=== PATIENT | male | born 1990 | race Caucasian/White ===

== ENCOUNTER 2018-02-01 11:52 | Emergency (ER) | payer OTHER ==
[2018-02-01 12:14] VITALS: BP 134/79
[2018-02-01] MEDS ORDERED: ZOFRAN IV ONE (13:46)
[2018-02-01] MEDS ORDERED: NACL 0.9% 1000 ML 1,000 ML IV ONE (13:46)
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
[2018-02-01] MEDS ORDERED: BENTYL PO ONE ×2 (13:47→14:16)
[2018-02-01 14:05] LABS: Eosinophils # (Auto) 0.1 K/mm3 (0.0-0.4); Eosinophils % (Auto) 1.5 % (0.0-4.3); Hemoglobin 17.6 gm/dl (11.8-15.2); Lymphocytes # (Auto) 1.3 K/mm3 (1.2-5.4); Mean Corpuscular HGB Conc 35 % (32-34); Mean Corpuscular Hemoglobin 31 pg (28-32); Mean Corpuscular Volume 91 fl (84-94); Monocytes # (Auto) 0.3 K/mm3 (0.0-0.8); Monocytes % (Auto) 7.1 % (0.0-7.3); Platelet Count 210 K/mm3 (140-440); Red Blood Count 5.61 M/mm3 (3.65-5.03); Red Cell Distribution Width 12.9 % (13.2-15.2)
[2018-02-01] MEDS ORDERED: BENTYL ONE (14:18)
[2018-02-01 14:20] LABS: Alanine Aminotransferase 23 units/L (7-56); Albumin 4.8 g/dL (3.9-5); BUN/Creatinine Ratio 10; Blood Urea Nitrogen 9 mg/dL (9-20); Calcium 10.1 mg/dL (8.4-10.2); Hemolysis Index 12; Lipase 18 units/L (13-60)
== END 2018-02-01 16:00 | disposition home or self-care (01) ==
LOC: ED 11:52
DX: K52.9 Noninfective gastroenteritis and colitis, unspecified (principal); F17.200 Nicotine dependence, unspecified, uncomplicated; F12.10 Cannabis abuse, uncomplicated
CPT/HCPCS: 36415; 80053; 83690; 85025; 96361; 96374; 99283; J2405; J7030

== ENCOUNTER 2018-09-20 13:57 | Emergency (ER) | payer SELFPAY ==
--- NOTE | 2018-09-20 14:05 | Emergency Department Report ---
Blank Doc - Documentation Documentation: states he has been feeling "weird" generalized weakness +N/V no diarrhea no fever states he has "pressure" sensation in the abdomen last had a BM today no urinary sx states he took xanax off the street 3 days ago states he began having symptoms after states he has taken before no PMHx no daily meds +smoker non drinker +marijuana denies any other drug use
[2018-09-20 14:08] VITALS: BP 138/76
[2018-09-20 14:40] LABS: Basophils # (Auto) 0.1 K/mm3 (0.0-0.1); Basophils % (Auto) 1.7 % (0.0-1.8); Eosinophils % (Auto) 0.4 % (0.0-4.3); Hematocrit 51.1 % (35.5-45.6); Lymphocytes # (Auto) 1.5 K/mm3 (1.2-5.4); Lymphocytes % (Auto) 38.2 % (13.4-35.0); Mean Corpuscular HGB Conc 35 % (32-34); Mean Corpuscular Volume 91 fl (84-94); Monocytes # (Auto) 0.4 K/mm3 (0.0-0.8); Monocytes % (Auto) 10.8 % (0.0-7.3); Platelet Count 172 K/mm3 (140-440); Red Blood Count 5.65 M/mm3 (3.65-5.03); Red Cell Distribution Width 12.5 % (13.2-15.2)
[2018-09-20 14:53] LABS: Alanine Aminotransferase 9 units/L (7-56); Albumin 4.8 g/dL (3.9-5); BUN/Creatinine Ratio 12; Blood Urea Nitrogen 11 mg/dL (9-20); Calcium 9.3 mg/dL (8.4-10.2); Hemolysis Index 5
[2018-09-20] MEDS ORDERED: ZOFRAN IV ONE ×2 (15:02→16:46)
[2018-09-20] MEDS ORDERED: NACL 0.9% 1000 ML 1,000 ML IV ONE ×2 (15:02→16:46)
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
--- NOTE | 2018-09-20 17:51 | XRay Report ---
PROCEDURE: XR ABD SERIES W CXR 1V HISTORY: n,v, hx of ex lap FINDINGS: Frontal view of the chest was acquired as well as supine and erect views of the abdomen. The heart is normal in size. The lungs appear clear. The pleura and mediastinum are within normal childress its. In the abdomen, air is seen within nondistended loops of small bowel and large bowel. There is no bow el obstruction. There is no free air. IMPRESSION: No active disease in the chest Normal bowel gas pattern This document is electronically signed by Ed Abraham MD., Sep 20 2018 05:48:56 PM ET
[2018-09-20 18:14] LABS: Bacteria,Urine 1+ /HPF (Negative); Bilirubin,Urine NEG (Negative); Blood,Urine NEG (Negative); Color,Urine Amber (Yellow); Mucus,Urine 3+ /HPF; WBC,Urine < 1.0 /HPF (0.0-6.0)
[2018-09-20 18:17] LABS: Amphetamine Screen,Urine PRESUMPTIVE NEGATIVE; Benzodiazepines Screen,Urine PRESUMPTIVE NEGATIVE; Cocaine Screen,Urine PRESUMPTIVE NEGATIVE; Methadone Screen,Urine PRESUMPTIVE NEGATIVE; Opiate Screen,Urine PRESUMPTIVE NEGATIVE
[2018-09-20 19:18] LABS: Cannabinoid Screen,Urine PRESUMPTIVE POSITIVE
== END 2018-09-20 19:26 | disposition home or self-care (01) ==
LOC: ED 13:57
DX: R10.84 Generalized abdominal pain (principal); R11.0 Nausea
CPT/HCPCS: 36415; 74022; 80053; 80307; 81001; 83690; 85025; 96361; 96374; 96376; 99284; J2405; J7030

== ENCOUNTER 2019-11-01 16:44 | Emergency (ER) | payer SELFPAY ==
[2019-11-01 17:33] LABS: Eosinophils # (Auto) 0.1 K/mm3 (0.0-0.4); Eosinophils % (Auto) 1.5 % (0.0-4.3); Hematocrit 47.8 % (35.5-45.6); Hemoglobin 16.4 gm/dl (11.8-15.2); Lymphocytes # (Auto) 1.9 K/mm3 (1.2-5.4); Lymphocytes % (Auto) 44.6 % (13.4-35.0); Mean Corpuscular HGB Conc 34 % (32-34); Mean Corpuscular Volume 90 fl (84-94); Monocytes # (Auto) 0.5 K/mm3 (0.0-0.8); Monocytes % (Auto) 11.2 % (0.0-7.3); Platelet Count 224 K/mm3 (140-440); Red Blood Count 5.29 M/mm3 (3.65-5.03); Red Cell Distribution Width 13.2 % (13.2-15.2)
[2019-11-01 17:42] LABS: Alanine Aminotransferase 12 units/L (7-56); Albumin 5.1 g/dL (3.9-5); BUN/Creatinine Ratio 10; Blood Urea Nitrogen 9 mg/dL (9-20); Calcium 10.1 mg/dL (8.4-10.2); Hemolysis Index 5
[2019-11-01 17:45] LABS: Amorphous Crystals,Urine 1+; Bilirubin,Urine NEG (Negative); Blood,Urine NEG (Negative); Color,Urine Amber (Yellow); Mucus,Urine FEW /HPF; Protein,Urine <15 mg/dL mg/dL (Negative)
[2019-11-01] MEDS ORDERED: SODIUM CHLORIDE 0.9% 1000 ML 1,000 ML IV ONE (22:08)
[2019-11-01] MEDS ORDERED: MORPHINE 4 MG/1 ML INJ IV ONE (22:08)
[2019-11-01] MEDS ORDERED: SUCRALFATE 1 GM TAB PO ONE (22:08)
[2019-11-01] MEDS ORDERED: ONDANSETRON 4 MG/2 ML INJ IV ONE (22:08)
[2019-11-01] MEDS ORDERED: FAMOTIDINE 20 MG/2 ML INJ IV ONE (22:08)
[2019-11-01] MEDS ORDERED: cefTRIAXone/NS 1 GM/50 ML 1 GM/50 ML BAG IV ONE (22:09)
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
--- NOTE | 2019-11-01 23:18 | Cat Scan Report ---
CT OF THE ABDOMEN AND PELVIS WITH INTRAVENOUS CONTRAST INDICATION / CLINICAL INFORMATION: Epigastric pain. TECHNIQUE: The patient received 100 cc Omnipaque [address] scans at this location are performed using CT dose reduction for ALARA by means of automated exposure control. COMPARISON: 04/27/18. FINDINGS: ABDOMEN: The liver, spleen, gallbladder, bile ducts, pancreas, adrenal glands, kidneys and bowel demo nstrate no significant abnormality. No adenopathy is seen. The lung bases are clear. PELVIS: The distal ureters, urinary bladder and prostate gland are normal. There is no evidence of ap pendicitis or diverticulitis. No abnormal mass or fluid collection is seen. I do not identify a herni a. No acute osseous abnormality is identified. IMPRESSION: No acute abnormality. Signer Name: Rakesh Puga MD Signed: 11/01/2019 11:13 PM Workstation Name: [id number]
[2019-11-02 00:08] VITALS: BP 123/65
== END 2019-11-02 00:12 | disposition home or self-care (01) ==
LOC: ED 16:44
DX: K21.9 Gastro-esophageal reflux disease without esophagitis (principal); K29.70 Gastritis, unspecified, without bleeding; N39.0 Urinary tract infection, site not specified; R11.2 Nausea with vomiting, unspecified; R10.13 Epigastric pain; F17.200 Nicotine dependence, unspecified, uncomplicated; Z98.890 Other specified postprocedural states; Z79.1 Long term (current) use of non-steroidal anti-inflammatories (NSAID); Z79.899 Other long term (current) drug therapy; Z88.8 Allergy status to other drugs, medicaments and biological substances
CPT/HCPCS: 36415; 74177; 80053; 81001; 83690; 85025; 87086; 96365; 96375; 99284; J0696; J2270; J2405; J7030; Q9967

== ENCOUNTER 2020-03-09 14:46 | Emergency (ER) | payer SELFPAY ==
[2020-03-09 15:15] VITALS: BP 127/62
[2020-03-09] MEDS ORDERED: ONDANSETRON 4 MG/2 ML INJ ONE (16:21)
[2020-03-09] MEDS ORDERED: SODIUM CHLORIDE 0.9% 1000 ML 1,000 ML ONE (16:21)
[2020-03-09] MEDS ORDERED: SODIUM CHLORIDE 0.9% 1000 ML 1,000 ML IV ONE (16:41)
--- NOTE | 2020-03-09 16:43 | Event Note ---
ED Screening Note ED Screening Note: 29-year-old male presents emerged department complaining of 1 to 2-day history of diffuse vomiting with associated abdominal pain to the mid gastric area, unknown etiology. Reports no hemoptysis no hematemesis no hematochezia no fevers no diarrhea. No constipation. No trauma. Symptoms are now beginning to be associated with dizziness as well. This initial assessment/diagnostic orders/clinical plan/treatment(s) is/are subject to change based on patients health status, clinical progression and re-assessment by fellow clinical providers in the ED. Further treatment and workup at subsequent clinical providers discretion. Patient/guardian urged not to elope from the ED as their condition may be serious if not clinically assessed and managed. Initial orders include: CT scan, laboratory data, fluids
[2020-03-09 17:55] LABS: Basophils % (Auto) 0.2 % (0.0-1.8); Hematocrit 44.1 % (35.5-45.6); Hemoglobin 15.3 gm/dl (11.8-15.2); Lymphocytes # (Auto) 0.5 K/mm3 (1.2-5.4); Lymphocytes % (Auto) 7.5 % (13.4-35.0); Mean Corpuscular HGB Conc 35 % (32-34); Mean Corpuscular Volume 92 fl (84-94); Monocytes # (Auto) 0.4 K/mm3 (0.0-0.8); Monocytes % (Auto) 6.3 % (0.0-7.3); Platelet Count 188 K/mm3 (140-440); Red Blood Count 4.79 M/mm3 (3.65-5.03); Red Cell Distribution Width 12.3 % (13.2-15.2)
[2020-03-09 18:05] LABS: Alanine Aminotransferase 41 units/L (7-56); Albumin 4.3 g/dL (3.9-5); BUN/Creatinine Ratio 19; Blood Urea Nitrogen 15 mg/dL (9-20); Calcium 8.8 mg/dL (8.4-10.2); Hemolysis Index 8
--- NOTE | 2020-03-09 21:41 | Cat Scan Report ---
CT ABDOMEN AND PELVIS WITH CONTRAST INDICATION / CLINICAL INFORMATION: Patient complains of Nausea, Vomiting and Diarrhea. TECHNIQUE: Axial CT images were obtained through the abdomen and pelvis after 100 cc Omni [address] scans at this location are performed using CT dose reduction for ALARA by means of automated expos ure control. COMPARISON: 11/01/2019 CT abdomen pelvis FINDINGS: LOWER CHEST: No significant abnormality. HEPATOBILIARY: Diffuse hypoattenuation suggesting fatty infiltration. No focal lesion. No significant biliary abnormality. PANCREAS: No significant abnormality. SPLEEN: No significant abnormality. ADRENALS: No significant abnormality. GENITOURINARY: 2 right-sided nonobstructing nephroliths measuring on the order of 2-4 mm. No obstruct toni uropathy. Ureters and bladder demonstrate no significant abnormality. GASTROINTESTINAL/MESENTERY: Appendix demonstrates no significant abnormality. Proximal small bowel is mildly enhancing with slight wall thickening possibly representing mild enteritis. No bowel obstruct ion. No free air or significant free fluid. RETROPERITONEUM: No significant adenopathy. REPRODUCTIVE ORGANS: No significant abnormality. VASCULAR: No significant abnormality. SKELETAL SYSTEM: No significant abnormality. ADDITIONAL FINDINGS: None. IMPRESSION: 1. Mild proximal small bowel wall thickening/enhancement possibly representing mild enteritis. 2. Nonobstructing right-sided nephrolithiasis. 3. Hepatic hypoattenuation possibly representing fatty infiltration. Signer Name: Rakesh Serna MD Signed: 03/09/2020 9:36 PM Workstation Name: [id number]
== END 2020-03-10 01:00 | disposition left against medical advice (07) ==
LOC: ED 14:46
DX: R11.2 Nausea with vomiting, unspecified (principal); Z53.21 Procedure and treatment not carried out due to patient leaving prior to being seen by health care provider
CPT/HCPCS: 36415; 74177; 80053; 83690; 85025; J2405; J7030; Q9967